=== PATIENT | female | born 1970 | race Caucasian/White ===

== ENCOUNTER 2019-05-18 17:43 | Inpatient (IN) | payer MEDICAID ==
[~2019-05-18] VITALS: Ht 172.7 cm; Wt 95.4 kg
[2019-05-18 19:13] LABS: PLATELET COUNT 149 x10^3mcL (130-400)
[2019-05-18 19:17] LABS: BASOPHIL % 0 % (0-2); RED CELL DISTRIBUTION WIDTH 21.3 % (11.5-14.5)
[2019-05-18 19:26] LABS: CALCIUM 8.7 mg/dL (8.5-10.1); CARBON DIOXIDE 22.5 mmol/L (21-32); CHLORIDE SERUM 101 mmol/L (98-107); CREATININE SERUM 0.8 mg/dL (0.6-1.0); GFR1 > 60 mL/min; GLUCOSE SERUM 257 mg/dL (74-106); POTASSIUM SERUM 3.8 mmol/L (3.5-5.1); SODIUM SERUM 138 mmol/L (136-145)
[2019-05-18 19:31] LABS: ALBUMIN 3.5 g/dL (3.4-5.0); ALKALINE PHOSPHATASE 102 U/L (46-116); ALT/SGPT 27 U/L (14-59); AST/SGOT 14 U/L (15-37); BILIRUBIN TOTAL 0.7 mg/dL (0.20-1.00)
[2019-05-18 19:32] LABS: rbc morphology (normal/abnorm) ABNORMAL (NORMAL)
[2019-05-18 19:33] LABS: TOTAL PROTEIN, SERUM 8.3 g/dL (6.4-8.2)
[2019-05-18 21:31] LABS: RED BLOOD CELLS 5.02 M/mm3 (4.10-5.10)
[2019-05-18 21:48] LABS: CHOLESTEROL/HDL RATIO 3.6; IRON 14 ug/dL (50-170); TOTAL IRON BINDING CAPACITY 468 ug/dL (250-450)
[2019-05-18] MEDS ORDERED: METFORMIN HCL500 M4 (22:48)
[2019-05-19] VITALS (7 sets, daily range): BP systolic 104–149; BP diastolic 50–68; Ht 172.7 cm; Wt 95.4 kg
[2019-05-19 06:45] LABS: CARBON DIOXIDE 23.6 mmol/L (21-32); CHLORIDE SERUM 105 mmol/L (98-107); CREATININE SERUM 0.6 mg/dL (0.6-1.0); GFR1 > 60 mL/min; GLUCOSE SERUM 162 mg/dL (74-106); MAGNESIUM 1.9 mg/dL (1.8-2.4); PHOSPHOROUS 4.3 mg/dL (2.5-4.9); POTASSIUM SERUM 3.7 mmol/L (3.5-5.1); SODIUM SERUM 140 mmol/L (136-145)
[2019-05-19 07:38] LABS: UA SPECIFIC GRAVITY >=1.030 (1.005-1.035); microscopic required? YES; urine erythrocyte 2+ (NEGATIVE)
[2019-05-19 07:53] LABS: BASOPHIL % 0.3 % (0-2); PLATELET COUNT 130 x10^3mcL (130-400)
[2019-05-19 07:58] LABS: RED CELL DISTRIBUTION WIDTH 21.1 % (11.5-14.5)
[2019-05-19] MEDS ORDERED: METFORMIN HCL1000 MG PO (08:22)
[2019-05-19] MEDS ORDERED: GLIPIZIDE XL2.5 M1 PO (08:23)
[2019-05-19 12:07] LABS: rbc morphology (normal/abnorm) ABNORMAL (NORMAL)
[2019-05-20 06:09] VITALS: BP 113/62
[2019-05-20 06:57] LABS: CALCIUM 7.9 mg/dL (8.5-10.1); CARBON DIOXIDE 21.6 mmol/L (21-32); CHLORIDE SERUM 104 mmol/L (98-107); CREATININE SERUM 0.6 mg/dL (0.6-1.0); GFR1 > 60 mL/min; GLUCOSE SERUM 147 mg/dL (74-106); POTASSIUM SERUM 3.7 mmol/L (3.5-5.1); SODIUM SERUM 137 mmol/L (136-145)
[2019-05-20 08:05] LABS: PLATELET COUNT 207 x10^3mcL (130-400)
[2019-05-20 08:27] LABS: RED CELL DISTRIBUTION WIDTH 21.7 % (11.5-14.5)
[2019-05-20 09:06] VITALS: BP 111/66
[2019-05-20] MEDS ORDERED: TAMIFLU75 MG PO (11:14)
[2019-05-20] MEDS ORDERED: LANTUS100 U/ML SC (11:15)
[2019-05-20 11:23] LABS: BAND NEUTROPHIL 1 % (0-10); MONOCYTE 8 % (0-7); SEGMENTED NEUTROPHILS 52 % (37-75)
[2019-05-20] MEDS ORDERED: ACCU CHEK COMP MC (11:23)
[2019-05-20 11:24] LABS: BASOPHIL 1 % (0-2)
[2019-05-20] MEDS ORDERED: LIPI10 PO (11:24)
[2019-05-20 11:25] LABS: rbc morphology (normal/abnorm) ABNORMAL (NORMAL)
[2019-05-20 12:53] VITALS: BP 111/65
== END 2019-05-20 14:14 | disposition home or self-care (01) | DRG 720 ==
LOC: ED 17:43 → DU 20:25
PROVIDERS: Specialist; ADMIT Internal Medicine
PROC: 30233N1 Transfusion of Nonautologous Red Blood Cells into Peripheral Vein, Percutaneous Approach (ICD-10-PCS; principal; 2019-05-19)
DX: A41.89 Other specified sepsis (principal); E87.2 Acidosis; E11.65 Type 2 diabetes mellitus with hyperglycemia; D50.9 Iron deficiency anemia, unspecified; J10.1 Influenza due to other identified influenza virus with other respiratory manifestations; E78.5 Hyperlipidemia, unspecified; J20.8 Acute bronchitis due to other specified organisms; N39.0 Urinary tract infection, site not specified; Z68.32 Body mass index [BMI] 32.0-32.9, adult; Z79.84 Long term (current) use of oral hypoglycemic drugs
CPT/HCPCS: 82962; 87804; G0378; J1885; J1956; J7030; J7050; J7620; P9016